=== PATIENT | female | born 1980 | race Caucasian/White ===

== ENCOUNTER 2017-01-09 10:37 | Emergency (ER) | payer BC ==
[2017-01-09 10:49] VITALS: BP 134/97; BMI 38.7
--- NOTE | 2017-01-09 12:03 | DR.GENAD ---
HPI - PCP Primary Care Physician: mary lou - HPI Comment HPI Comment: PATIENT MISS HER PERIOD. HOME PREDNANCY TEST WAS POSITIVE. NO DYSURIA OR FEVER. - Complaint/Symptoms Chief Complaint Doctors Comments: LOWER ABDOMINAL PAIN, MISS PERIOD. Chief Complaint:: "i think i'm " patient states that she took a home test and it was positive. she states that she has been having lower abdominal pain and wants to be checked out. 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 - Nurses notes reviewed Nurses Notes Review: Yes - Source History Provided: Patient - Mode of Arrival Mode of Arrival: Ambulatory - Timing Onset of Chief Complaint: 01/09/17 Came on: Gradually - Duration Duration: Constant Duration: Days - Severity Severity: Moderate PMH - PMH Past Medical History: No Past Surgical History: No - Family History History of Family Medical Conditions: No - Social History Does patient currently use any type of tobacco product: No Have you used tobacco products in the last 12 months: No Type of Tobacco Use: None Does any household member use tobacco: No Alcohol Use: None Do you use any recreational Drugs:: No Lives With: Family Lives Where: Home - infectious screening In the last 2 months have you had wt loss of >10#?: NO Have you had fever, night sweats or hemotysis?: No Have you traveled outside the country in the last 6 months?: No Isolation: Standard ROS - Review of Systems Constitutional: No Symptoms Reported Eyes: No Symptoms Reported ENTM: No Symptoms Reported Respiratoy: No Symptoms Reported Cardiovascular: No Symptoms Reported Gastrointestinal/Abdominal: Abdominal Pain. negative: Nausea, Vomiting Genitourinary: Other (MISS PERIOD.) Neurological: No Symptoms Reported Musculoskeletal: No Symptoms Reported Integumentary: No Symptoms Reported Hematologic/Lymphatic: No Symptoms Reported Endocrine: No Symptoms Reported All Other Systems: Reviewed and Negative PE - Vital Signs Vitals: Temperature 98.0 F Pulse Rate 81 Respiratory Rate 16 Blood Pressure 134/97 O2 Sat by Pulse Oximetry 98 - General Limitations: No Limitations General Appearance: Alert - Head Head Exam: Normal Inspection - Eyes Eye exam: Normal Appearance - ENT ENT Exam: Normal External Ear Exam External Ear Exam: Normal External Inspection TM/Canal Exam: Bilateral Normal Nose Exam: Normal Nose Exam Mouth Exam: Normal Inspection Throat Exam: Normal Inspection - Neck Neck Exam: Trachea Midline - Chest Chest Inspection: Symmetric Chest Wall Rise - Respiratory Respiratory Exam: Normal Lung Sounds Bilat Respiratory Exam: Bilateral Clear to Auscultation - Cardiovascular Cardiovascular Exam: Regular Rate, Normal Rhythm, Normal Heart Sounds - Abdominal Exam Abdominal Exam: Normal Bowel Sounds, Soft. negative: Tenderness - Extremities Extremities Exam: Normal Inspection - Back Back Exam: Normal Inspection - Neurologic Neurological Exam: Alert, Oriented X3 - Psychiatric Psychiatric Exam: Anxious - Skin Skin Exam: Normal Color MDM - Differential Diagnosis Differential Diagnosis: , ABDOMINAL PAIN, UTI Course - Treatment Treatment: SEE ORDERS - Education/Counseling Education/Counseling: Patient, Family, Education Educated On: Diagnosis, Needs for Follow Up ROR - Labs Reviewed Laboratory Results Reviewed?: Yes Laboratory: HCG, Qual Negative <10 mIU/mL 01/09/17 12:12 Specimen Type Clean catch urine 01/09/17 13:24 Urine Color Yellow (YELLOW) 01/09/17 13:24 Urine Appearance Slightly hazy (CLEAR) 01/09/17 13:24 Urine pH 6.5 (5.0 - 8.0) 01/09/17 13:24 Ur Specific [place] 1.015 (1.000-1.030) 01/09/17 13:24 Urine Protein Negative (NEGATIVE) 01/09/17 13:24 Urine Glucose (UA) Negative (NEGATIVE) 01/09/17 13:24 Urine Ketones Negative (NEGATIVE) 01/09/17 13:24 Urine Occult Blood Negative (NEGATIVE) 01/09/17 13:24 Urine Nitrite Negative (NEGATIVE) 01/09/17 13:24 Urine Bilirubin Negative (NEGATIVE) 01/09/17 13:24 Urine Urobilinogen Normal (NORMAL) 01/09/17 13:24 Ur Leukocyte Esterase 2+ (NEGATIVE) 01/09/17 13:24 Urine RBC 0-3 /HPF (NEGATIVE) 01/09/17 13:24 Urine WBC 2-5 /HPF (NEGATIVE) 01/09/17 13:24 Ur Squamous Epith Cells Many /HPF (NEGATIVE) 01/09/17 13:24 Urine Bacteria 1+ /HPF (NEGATIVE) 01/09/17 13:24 Ur Culture Indicated? No/not indicated 01/09/17 13:24 Blood Type A NEGATIVE 01/09/17 12:12 - Diagnosis Discharge Problem: Abdominal pain Qualifiers: Abdominal location: lower abdomen, unspecified Qualified Code(s): R10.30 - Lower abdominal pain, unspecified UTI (urinary tract infection) Qualifiers: Urinary tract infection type: site unspecified Hematuria presence: without hematuria Qualified Code(s): N39.0 - Urinary tract infection, site not specified - Discharge Plan Disposition: 01 HOME, SELF-CARE Condition: Stable - Follow ups/Referrals Follow ups/Referrals: SARAH LINTON [STAFF PHYSICIAN] - 1 day NFD,None [Primary Care Provider] - 1 day - Instructions Instructions: Abdominal Pain, Adult, [id number] Additional Instructions: RETURN TO ED IF WORSE.
[2017-01-09 12:34] LABS: SERUM PREGNANCY TEST, QUAL NEGATIVE <10 mIU/mL
[2017-01-09 13:40] LABS: BILIRUBIN,URINE NEGATIVE (NEGATIVE); BLOOD/HEMOGLOBIN,URINE NEGATIVE (NEGATIVE); GLUCOSE, URINE NEGATIVE (NEGATIVE); KETONES,URINE NEGATIVE (NEGATIVE); LEUKOCYTE ESTERASE ,URINE 2+ (NEGATIVE); NITRITES,URINE NEGATIVE (NEGATIVE); PH,URINE 6.5 (5.0 - 8.0); PROTEIN,URINE NEGATIVE (NEGATIVE); UROBILINOGEN,URINE NORMAL (NORMAL)
[2017-01-09 13:52] LABS: COLOR,URINE YELLOW (YELLOW)
[2017-01-09 13:53] LABS: APPEARANCE,URINE SLIGHTLY HAZY (CLEAR); BACTERIA,URINE 1+ /HPF (NEGATIVE); RBC,URINE 0-3 /HPF (NEGATIVE); SQUAMOUS EPITHELIAL CELL,UR MANY /HPF (NEGATIVE)
== END 2017-01-09 13:59 | disposition home or self-care (01) ==
LOC: ER 10:56
DX: N39.0 Urinary tract infection, site not specified (principal); R10.84 Generalized abdominal pain
CPT/HCPCS: 36415; 81001; 84703; 86900; 86901; 99282; 99283

== ENCOUNTER → 2017-01-14 | Outpatient (CLI) | payer BC | LOC: EDUNIT# 11:00 → RAD 11:28 | PROVIDERS: ATTEND Physician Assistant | DX: Z12.31 Encounter for screening mammogram for malignant neoplasm of breast (principal) | CPT/HCPCS: 77067 ==

== ENCOUNTER 2017-05-01 07:18 | Day surgery (SDC) | payer BC ==
[2017-05-01] MEDS ORDERED: NS 50 ML IV + SPIKE MINIBAG* 100 ML IV ONE (07:29)
[2017-05-01] MEDS ORDERED: LR 1000 ML IV 1,000 ML IV ONE (07:29)
[2017-05-01] MEDS ORDERED: ANCEF VIAL 1 GM ONE (07:30)
[2017-05-01] MEDS: FENTANYL INJ 250 mcg ONE ×2 (08:09→08:40)
[2017-05-01] MEDS: XYLOCAINE 1 % (PLAIN) ONE ×2 (08:10→08:51)
[2017-05-01] MEDS: MARCAINE 0.25% WITH EPI IJ ONE ×2 (08:10→08:51)
[2017-05-01] MEDS ORDERED: ZOFRAN INJ 4 MG VIAL IVP PRN (10:14)
[2017-05-01] MEDS ORDERED: PHENERGAN INJ 25 MG IVP PRN (10:14)
[2017-05-01] MEDS ORDERED: DILAUDID INJ IVP PRN (10:14)
[2017-05-01] MEDS ORDERED: BENADRYL INJ 50 MG VIAL IVP PRN (10:14)
[2017-05-01] MEDS ORDERED: REGLAN INJ 10 MG VIAL IVP PRN (10:14)
[2017-05-01] MEDS ORDERED: NORCURON INJ 10 MG VIAL ONE (10:19)
[2017-05-01] MEDS ORDERED: XYLOCAINE 2 % (PLAIN) ONE (10:19)
[2017-05-01] MEDS ORDERED: VERSED ONE (10:19)
[2017-05-01] MEDS ORDERED: DIPRIVAN VIAL ONE (10:19)
[2017-05-01] MEDS ORDERED: SUPRANE IN ONE (10:19)
[2017-05-01] MEDS ORDERED: ZOFRAN INJ 4 MG VIAL ONE (10:19)
[2017-05-01] MEDS ORDERED: NEOSTIGMINE INJ ONE (10:19)
[2017-05-01] MEDS ORDERED: ROBINUL ONE (10:19)
[2017-05-01] MEDS ORDERED: QUELICIN (OR ANECTINE) ONE (10:19)
[2017-05-01] MEDS ORDERED: PERCOCET TAB 5/325 MG PO PRN (10:32)
[2017-05-01 11:18] VITALS: BP 120/78
== END 2017-05-01 12:00 | disposition home or self-care (01) ==
LOC: SURG1 07:18
PROVIDERS: ATTEND Student in an Organized Health Care Education/Training Program
PROC: 0WUF0JZ Supplement Abdominal Wall with Synthetic Substitute, Open Approach (ICD-10-PCS; principal; 2017-05-01 08:30)
DX: K42.0 Umbilical hernia with obstruction, without gangrene (principal)
CPT/HCPCS: A4216; A4222; S0020; J0330; J0690; J2001; J2250; J2405; J2710; J3010; J3490; J7120

== ENCOUNTER 2018-01-22 17:15 | Emergency (ER) | payer SELFPAY ==
[2018-01-22 17:25] VITALS: BP 133/82; BMI 38.7
[2018-01-22 18:27] LABS: BILIRUBIN,URINE NEGATIVE (NEGATIVE); BLOOD/HEMOGLOBIN,URINE NEGATIVE (NEGATIVE); GLUCOSE, URINE NEGATIVE (NEGATIVE); KETONES,URINE NEGATIVE (NEGATIVE); LEUKOCYTE ESTERASE ,URINE NEGATIVE (NEGATIVE); NITRITES,URINE NEGATIVE (NEGATIVE); PH,URINE 6.5 (5.0 - 8.0); PROTEIN,URINE NEGATIVE (NEGATIVE); UROBILINOGEN,URINE NORMAL (NORMAL)
[2018-01-22 18:28] LABS: APPEARANCE,URINE CLEAR (CLEAR); COLOR,URINE YELLOW (YELLOW)
--- NOTE | 2018-01-22 18:47 | DR.GENAD ---
HPI - PCP Primary Care Physician: NFD - Complaint/Symptoms Chief Complaint:: PT C/O OF LOWER BACK PAIN. STATES SHE HAS A HARD TIME GETTING UP. PT STATES THIS HAS BEEN GOING ON FOR ABOUT 2 DAYS - Nurses notes reviewed Nurses Notes Review: Yes - Source History Provided: Patient - Mode of Arrival Mode of Arrival: Ambulatory - Timing Onset of Chief Complaint: 12/21/17 PMH - PMH Past Medical History: Yes Past Medical History: Hypertension, Hypothyroidism Past Surgical History: Yes Surgical History: Hysterectomy Past Surgical History Comment: UMBILICAL HERNIA REPAIR - Family History History of Family Medical Conditions: Yes Family Medical History: Diabetes Mellitus, Cancer, [place], Coronary Artery Disease, Heart Failure, Sudden Cardiac , Hypertension - Social History Does patient currently use any type of tobacco product: No Have you used tobacco products in the last 12 months: No Type of Tobacco Use: None Does any household member use tobacco: No Alcohol Use: None Do you use any recreational Drugs:: No Lives With: Family Lives Where: Home - infectious screening In the last 2 months have you had wt loss of >10#?: NO Have you had fever, night sweats or hemotysis?: No Have you traveled outside the country in the last 6 months?: No Isolation: Standard PE - Vital Signs Vitals: Temperature 99.3 F Pulse Rate 77 Respiratory Rate 20 Blood Pressure 133/82 O2 Sat by Pulse Oximetry 97 ROR - Labs Reviewed Laboratory: Specimen Type Clean catch urine 01/22/18 18:14 Urine Color Yellow (YELLOW) 01/22/18 18:14 Urine Appearance Clear (CLEAR) 01/22/18 18:14 Urine pH 6.5 (5.0 - 8.0) 01/22/18 18:14 Ur Specific [place] 1.015 (1.000-1.030) 01/22/18 18:14 Urine Protein Negative (NEGATIVE) 01/22/18 18:14 Urine Glucose (UA) Negative (NEGATIVE) 01/22/18 18:14 Urine Ketones Negative (NEGATIVE) 01/22/18 18:14 Urine Occult Blood Negative (NEGATIVE) 01/22/18 18:14 Urine Nitrite Negative (NEGATIVE) 01/22/18 18:14 Urine Bilirubin Negative (NEGATIVE) 01/22/18 18:14 Urine Urobilinogen Normal (NORMAL) 01/22/18 18:14 Ur Leukocyte Esterase Negative (NEGATIVE) 01/22/18 18:14 - Diagnosis Discharge Problem: Pain Abdominal pain Qualifiers: Abdominal location: lower abdomen, unspecified Qualified Code(s): R10.30 - Lower abdominal pain, unspecified - Discharge Plan Disposition: 01 HOME, SELF-CARE Condition: Stable Prescriptions: Acetaminophen/Codeine Tab [TYLENOL w/CODEINE #3 (300 MG/30 MG) *] 1 tab PO Q6H PRN #15 tab PRN Reason: Pain Cyclobenzaprine HCl [FLEXERIL 10 MG *] 10 mg PO Q8H PRN #20 tab PRN Reason: - Follow ups/Referrals Follow ups/Referrals: NFD,None [Primary Care Provider] - 3 days - Instructions Instructions: Abdominal Pain, Adult, [id number], Back Pain, Adult, Easy-to- Read Additional Instructions: RETURN TO ED IF WORSE.
--- NOTE | 2018-01-22 19:16 | CT ---
CT OF THE ABDOMEN AND PELVIS WITHOUT CONTRAST HISTORY: Low back pain for 2 days Comparison: None Technique: Multiple axial images of the abdomen and pelvis were obtained from the lung bases to the pubic symphy sis without the administration of IV contrast. Dose reduction techniques including Automated Exposur e Control (AEC) and adjustment of mA and kV were utlized. Findings: The heart is normal in size. There is no pericardial effusion. Lung bases are clear without focal con solidation, pleural effusion or pneumothorax. The sensitivity for focal lesion detection within the solid abdominal viscera is diminished without t he use of IV contrast. Liver and spleen are normal in size, and contour. There is a large hypo attenuating lesion in the dom e of liver on series 3, image 11 measuring 6 x 5 cm. Borderline hepatic steatosis. No ductal dilatati on. Smaller hypo attenuating lesion seen on series 3, image 23. Gallbladder is present. No calcified gallstones or gallbladder wall thickening. The pancreas is unremarkable. Adrenal glands are normal. K idneys are normal in contour without hydronephrosis or nephrolithiasis. No bowel obstruction or inflammation. No abnormal appearing mesenteric or retroperitoneal lymph node s. No free fluid or fluid collections. The bladder is normal in appearance. Uterus not well seen. No free fluid or abnormal pelvic lymph nod es. No aggressive osseous lesions. IMPRESSION: 1. No definite source of patient's low back pain is identified on this limited noncontrast examinati on. 2. Large hypo attenuating lesion in the dome of liver. This may represent a large hemangioma or possi [place] cyst. This cannot be differentiated on a noncontrast examination. Would recommend MRI on a NONEME RGENT OUTPATIENT basis for further evaluation. Reported By:
[2018-01-22] MEDS ORDERED: FLEXERIL TAB 10 MG PO ONE (19:48)
[2018-01-22] MEDS ORDERED: TYLENOL #3 TAB (W/CODEINE) PO ONE ×2 (19:48→19:51)
[2018-01-22] MEDS ORDERED: FLEXERIL TAB 10 MG ONE (19:51)
== END 2018-01-22 19:58 | disposition home or self-care (01) ==
LOC: ER 17:28
DX: M54.5 Low back pain (principal); R10.84 Generalized abdominal pain
CPT/HCPCS: 74176; 81003; 99282; 99283